=== PATIENT | female | born 1965 | race African-American/Black ===

== ENCOUNTER → 2016-12-01 | Outpatient (CLI) | payer BC | LOC: RAD 12:57 | PROVIDERS: ATTEND Surgery | DX: E04.2 Nontoxic multinodular goiter (principal) | CPT/HCPCS: 70491; 71260; 82565 ==

== ENCOUNTER 2017-01-21 05:18 | Day surgery (SDC) | payer BC ==
[2017-01-14 09:51] LABS: HEMATOCRIT 42.3 % (36.0-47.0); HEMOGLOBIN 14.3 g/dL (12.0-15.5); HGB HCT DIFFERENCE 0.6; MEAN CORPUSCULAR HEMOGLOBIN 29.7 pg (27.0-33.4); MEAN CORPUSCULAR HGB CONC 33.9 g/dL (32.0-36.0); MEAN CORPUSCULAR VOLUME 88 fl (80-97); RED BLOOD COUNT 4.82 10^6/uL (3.72-5.28); RED CELL DISTRIBUTION WIDTH 13.4 % (11.5-14.0); WHITE BLOOD COUNT 9.2 10^3/uL (4.0-10.5)
[2017-01-14 10:18] LABS: ANION GAP 12 (5-19); BLOOD UREA NITROGEN 9 mg/dL (7-20); CALCIUM 9.6 mg/dL (8.4-10.2); CARBON DIOXIDE 25 mmol/L (22-30); CHLORIDE 103 mmol/L (98-107); CREATININE RESULT 0.71 mg/dL (0.52-1.25); GLUCOSE 117 mg/dL (75-110); POTASSIUM 4.4 mmol/L (3.6-5.0); SODIUM 140.3 mmol/L (137-145)
[~2017-01-21 05:18] MED LIST: CEFAZOLIN 1 GM/D5W RTU 1 GM/50 ML RTUPB IV PRN; LACTATED RINGERS 1000 ML IV PRN; LIDOCAINE 0.5% INJ-PF (5 MG/ML) 50 ML SDV SUBCUT PRN
[2017-01-21] MEDS ORDERED: FENTANYL CITRATE INJ/PF 100 MCG/2 ML AMPUL ONE (06:27)
[2017-01-21] MEDS ORDERED: FENTANYL CITRATE INJ/PF 250 MCG/5 ML AMPULE ONE (06:27)
[2017-01-21] MEDS ORDERED: EPHEDRINE SULFATE INJ 50 MG/1 ML AMPULE ONE (06:28)
[2017-01-21] MEDS ORDERED: MIDAZOLAM 2 MG/2 ML INJ ONE (06:28)
[2017-01-21] MEDS ORDERED: MORPHINE SULFATE 10 MG/ML INJ ONE (06:29)
[2017-01-21] MEDS ORDERED: PROPOFOL INJ 200 MG/20 ML VIAL IV ONE (06:29)
[2017-01-21] MEDS ORDERED: ACETAMINOPHEN 100 ML IV ONE (06:29)
[2017-01-21] MEDS ORDERED: DEXMEDETOMIDINE INJ 80 MCG/20 ML VIAL IV ONE (07:17)
[2017-01-21] MEDS ORDERED: MICROFIBRILLAR COLLAGEN 1 GM PACK ONE (07:20)
[2017-01-21] MEDS ORDERED: LIDOCAINE 4% INJ/PF (40 MG/ML) 5 ML AMPUL ONE (07:23)
[2017-01-21] MEDS ORDERED: FENTANYL CITRATE INJ/PF 100 MCG/2 ML AMPUL IV PRN ×3 (08:08)
[2017-01-21] MEDS ORDERED: MORPHINE SULFATE 10 MG/ML INJ IV PRN (08:08)
[2017-01-21] MEDS ORDERED: DIPHENHYDRAMINE HCL 50 MG/ML VIAL IV PRN (08:08)
[2017-01-21] MEDS ORDERED: PROMETHAZINE HCL INJ 25 MG/1 ML VIAL IV PRN ×2 (08:08)
[2017-01-21] MEDS ORDERED: OXYCODONE-ACETAMINOPHEN 5-325 MG TABLET PO PRN ×2 (08:08)
[2017-01-21] MEDS ORDERED: MEPERIDINE HCL/PF INJ 25 MG/1 ML DISP.SYRIN IV PRN (08:08)
[2017-01-21] MEDS ORDERED: DEXTROSE 5%-LACTATED RINGERS 1,000 ML IV PRN (11:51)
--- NOTE | 2017-01-21 12:04 | Operative Report ---
Operative Report DATE OF SURGERY: 01/21/17 PREOPERATIVE DIAGNOSIS: Multinodular goiter with compressive symptoms POSTOPERATIVE DIAGNOSIS: Same OPERATION: Total thyroidectomy with isthmusectomy SURGEON: CONSTANTIN HERRING 1ST POLYETHYLENE BAG MACHINE OPERATOR: REESE PARKS 2ND Rhinestone Setter: ETTA SUE ANESTHESIA: GA - working TISSUE REMOVED OR ALTERED: Right thyroid lobe, goiter, left thyroid lobe COMPLICATIONS: None ESTIMATED BLOOD LOSS: 100 cc INTRAOPERATIVE FINDINGS: See below PROCEDURE: The patient was seen in the preop holding area where her neck was marked for planned transcervical incision. She was then taken to the operating room where general anesthesia was induced. She was placed in the semirecumbent position cervical spine extended, arms tucked. The neck was prepped and draped in sterile fashion. Surgical plan surgical timeout were conducted. We did perform ultrasonography of the neck prior to prepping, confirming the goiter was primarily cervical on the right side and substernal on the left. For this reason, we proceeded with right lobectomy first. Markings were made on the skin for a generous transcervical incision approximately 2 fingerbreadths below the cricoid cartilage, 1 fingerbreadth below the previously marked skin marking by Dr. Herring in the preop holding area. Superior and inferior skin and platysma flaps were raised uneventfully. Strap muscles were cleanly divided in midline and the sterno thyroid elevated off of the anterior surface of the thyroid gland both on the right and left sides in a limited fashion. We now focused on the right neck. The strap muscles were retracted laterally, and using a combination of blunt and electrocautery dissection, the undersurface of the strap muscles were mobilized off the anterior surface of the gland. The thyroid lobe, right side, was fairly normal superiorly and mid position, but the inferior component of the lobe was essentially replaced with a 5-6 cm goiter. This extended towards midline and in fact over to the patient' s left side. We worked in a circumferential fashion the goiter from the sternum inferiorly, and a portion of the left thyroid lobe medially. We cleaned up the perithyroidal tissue superiorly at the level of the cricoid muscle. There was no pyramidal lobe. I felt the next best move would be to divide the right and left lobes and this was accomplished using more neck scalpel device and small clamps with 0 and 3-0 Vicryl ties. Once this was accomplished I was able to elevate the medial side of the right thyroid lobe and goiter off of the trachea minimally. We then proceeded to work in an alternating fashion mobilizing the right inferior goiter just at the level of the sternum, and then taking down the superior pole attachments. For documentation purposes, the right upper parathyroid gland was identified in its predictable location just at the superior pole of the right lobe. It was gingerly dissected off of the thyroid parenchyma preserved. The right inferior parathyroid gland was felt to be seen in a small collection of fatty tissue laterally and inferiorly but was not definitively confirmed visually. We found the posterior and inferior attachments somewhat stuck not in the malignant fashion but with generous fibrous stranding. We were very careful to tease through each of these splayed elements carefully so as to not pull out any neural tissue. The gland came off of the anterior surface of the trachea uneventfully. Again work in a circumferential fashion we are able to narrow the point of attachment all the way down to the components of the inferior thyroid artery which were taken right on the gland. The right recurrent laryngeal nerve was identified entering the inferior constrictor muscle territory. We did not dissect the nerve out in any fashion. Of note we did leave a very small nubbin of parenchyma attached to the right upper parathyroid gland. In taking the final attachments at the ligament of Garcia, we left approximately 1-1-1/2 cm nubbin of thyroid parenchyma attached to the ligament. The specimen was sent to pathology in a fragmented fashion consisting of normal right gland parenchyma as well as disrupted multinodular goiter. At this point the patient was assessed to be in stable condition, and I felt it was safe to proceed with the left lobectomy. Patient was repositioned for optimal exposure to the left neck. Again the strap muscles were elevated off of the anterior surface of the goiter and standing rock thyroid parenchyma. Using a combination of blunt and electrocautery dissection, I was able to use compression on the inferior pole, and elevate the sternoclavicular region to gingerly open up the plane so that the goiter in the substernal position could be completely mobilized. Once this was achieved, the bulk of the goiter was brought into the operative field. We divided the small fibrous attachments. At no point did I feel we had tethered the recurrent laryngeal nerve however we did not see it in the deep neck at this time. Working again in a circumferential fashion, we took the left lobe off of the anterior surface of the trachea uneventfully. The superior pole came down uneventfully as well. The left upper parathyroid gland was seen in the symmetric location and it too was preserved with a very small nubbin of thyroid parenchyma attached. Of note we did visualize the left recurrent laryngeal nerve in its typical location diving into the larynx just at the inferior constrictor muscle. It was kept out of harm's way. Also of note the left lobe came off of the posterior and lateral attachments much easier and uneventfully than the right side. We again took a branch of the inferior thyroid artery staying close to the thyroid parenchyma. The left inferior parathyroid gland was not visualized in its entirety. Eventually we had the gland and associated goiter mobilized completely using a few final clips leaving approximately 1-1/2 cm nubbin of parenchyma left right on the ligament of Garcia. Specimen was passed off to pathology Hemostasis was felt to be excellent. Patient was taken out of cervical extension, to aliquots of Avitene deployed into the recesses of the wound and the wound closed in layers including strap muscles and platysma with 2 and 3-0 Vicryl skin closed with 3-0 Vicryl, deep tissue. Dermabond glue. Of note no drain was placed into the deep tissue. Patient tolerated the procedure well, extubated and taken recovery in stable condition. Voice assessment was not made at the time of this dictation. Regarding assistance, BRYSON Beth, assisted with exposure, and wound closure; Dr. Sue assisted with the critical portion of both the right and left thyroid lobectomies.
[2017-01-21] MEDS: HYDROMORPHONE HCL INJ/PF 2 MG/ML AMPULE ONE ×3 (12:22→12:42)
[2017-01-21 12:55] LABS: ANION GAP 13 (5-19); BLOOD UREA NITROGEN 12 mg/dL (7-20); CALCIUM 9.1 mg/dL (8.4-10.2); CARBON DIOXIDE 24 mmol/L (22-30); CHLORIDE 104 mmol/L (98-107); CREATININE RESULT 0.87 mg/dL (0.52-1.25); GLUCOSE 166 mg/dL (75-110); MAGNESIUM 2.1 mg/dL (1.6-2.3); POTASSIUM 4.3 mmol/L (3.6-5.0); SODIUM 140.6 mmol/L (137-145)
[2017-01-21] MEDS ORDERED: PHENYLEPHRINE HCL INJ/PF 10 MG/1 ML SDV ONE (14:23)
[2017-01-21] MEDS ORDERED: ONDANSETRON HCL INJ/PF 4 MG/2 ML SDV ONE (14:23)
[2017-01-21] MEDS ORDERED: GLYCOPYRROLATE INJ 0.4 MG/2 ML VIAL ONE (14:23)
[2017-01-21] MEDS ORDERED: SUCCINYLCHOLINE CHLORIDE INJ 200 MG/10 ML VIAL ONE (14:23)
[2017-01-21] MEDS ORDERED: DEXAMETHASONE SOD PHOSPHATE INJ 4 MG/1 ML VIAL ONE (14:23)
[2017-01-21] MEDS ORDERED: NEOSTIGMINE METHYLSULFATE 10 MG/10 ML VIAL ONE (14:23)
[2017-01-21] MEDS ORDERED: ROCURONIUM BROMIDE INJ 50 MG/5 ML VIAL IV ONE (14:23)
[2017-01-21] MEDS ORDERED: LIDOCAINE 2% INJ-PF (20 MG/ML) 10 ML AMPUL ONE (14:23)
[2017-01-21] MEDS: KETOROLAC TROMETHAMINE INJ/PF 30 MG/1 ML SDV IV PRN ×2 (14:41→20:27)
[2017-01-22] MEDS ORDERED: OXYCODONE-ACETAMINOPHEN 5-325 MG TABLET PO PRN (00:20)
[2017-01-22] MEDS: BENZOCAINE/MENTHOL SORE THROAT LOZENGE BUCCAL PRN ×2 (01:02→09:05)
[2017-01-22] MEDS: KETOROLAC TROMETHAMINE INJ/PF 30 MG/1 ML SDV IV PRN (04:02)
--- NOTE | 2017-01-22 09:09 | DISCHARGE SUMMARY E ---
Discharge Summary NAME: ADRYAN HUTCHISON : 1965 AGE: 51Y ADMITTED: 01/21/2017 DISCHARGED: 01/22/2017 REASON FOR ADMISSION: Surgical treatment of multinodular goiter. SUMMARY OF HOSPITALIZATION: Patient is a 51-year-old female with a history of multinodular goiter. She was brought to ambulatory surgery for a total thyroidectomy. The procedure was performed by Dr. Herring on the morning of 01/21/2017. She tolerated the procedure well. Postoperatively, she did well, had good vocal control, and was started on a clear liquid diet. Postoperative calcium levels were 9.0 and 8.7 respectively. The first postoperative morning, she was having some numbness on the lateral aspect of her right forearm. This was felt to be due to either peripheral neuropathy due to arm positioning or possibly cervical radiculopathy due to cervical spine disease exacerbated by cervical extension during the operation. Reassurance was provided to the patient. By the midday of the first postoperative day she was felt to be ready for discharge home. FINAL DIAGNOSIS: 1. Multinodular goiter status post total thyroidectomy, Dr. Herring. 2. Right upper extremity numbness, new onset, possibly related to arm and/or neck positioning during recent surgery. DISPOSITION: Patient will be discharged home in care of family. Follow up with Dr. Herring in approximately 1 week. Take Percocet p.r.n. pain, calcium 500 mg 2 tablets p.o. b.i.d., and Synthroid 150 mcg p.o. daily. For management of sensory neuropathy, we have recommended rest, warm compresses to the neck. Should her symptoms worsen, she has been instructed to contact our office. DICTATING PHYSICIAN: CONSTANTIN HERRING M.D. [id number] PHY#: [id number] ID: [id number] JOB#: [id number] ACCT: [id number] cc:CONSTANTIN HERRING M.D. >
[2017-01-22 09:10] VITALS: BP 136/75
[2017-01-22] MEDS ORDERED: LEVOTHYROXINE SODIUM 0.1 MG TABLET PO SCH (10:00)
[2017-01-22] MEDS ORDERED: LEVOTHYROXINE SODIUM 0.15 MG TABLET PO SCH (10:00)
== END 2017-01-22 09:45 | disposition home or self-care (01) ==
LOC: OROUT 05:18 → 5 14:23 → OROUT 01-22 09:45
PROVIDERS: ATTEND Surgery
PROC: 0GTK0ZZ Resection of Thyroid Gland, Open Approach (ICD-10-PCS; principal; 2017-01-21 07:30)
DX: E04.2 Nontoxic multinodular goiter (principal); E06.5 Other chronic thyroiditis; R20.0 Anesthesia of skin; E66.3 Overweight; G47.30 Sleep apnea, unspecified; Z79.1 Long term (current) use of non-steroidal anti-inflammatories (NSAID); Z79.899 Other long term (current) drug therapy; Z68.41 Body mass index [BMI] 40.0-44.9, adult; Z91.040 Latex allergy status
CPT/HCPCS: 36415 ×2; 82310; 83735; 84132; 85027; 80048 ×2; 88305 ×2; 60240; J2250; J0690; J3490 ×5; J1100; J3010; J1885 ×2; J2270; J1170; J2370; J0330; J2405; J2704; J0131; 320

== ENCOUNTER → 2017-01-30 | Outpatient (CLI) | payer BC | LOC: OD 15:49 | PROVIDERS: ATTEND Surgery | DX: E89.0 Postprocedural hypothyroidism (principal) | CPT/HCPCS: 36415; 82310 ==

== ENCOUNTER → 2017-04-03 | Outpatient (CLI) | payer BC ==
[2017-04-03 17:39] LABS: FREE T3 2.68 pg/mL (2.77-5.27)
[2017-04-03 18:58] LABS: THYROID STIMULATING HORMONE 2.89 uIU/mL (0.47-4.68)
== END ==
LOC: OD 16:29
PROVIDERS: ATTEND Surgery
DX: E89.0 Postprocedural hypothyroidism (principal)
CPT/HCPCS: 36415; 82310; 84439; 84443; 84481